=== PATIENT | female | born 1955 | race Caucasian/White ===

== ENCOUNTER → 2019-08-16 | Outpatient (CLI) | payer MEDICARE, OTHER ==
[~2019-08-16] MED LIST: LIPITOR 10MG10 MG PO; NORVASC 5MG5 MG/TAB PO; PRIL40 PO
== END ==
LOC: COL.LAB 08:00
DX: Z20.828 Contact with and (suspected) exposure to other viral communicable diseases (principal)

== ENCOUNTER 2019-08-21 09:31 | Day surgery (SDC) | payer MEDICARE, OTHER ==
[~2019-08-21] VITALS: Ht 154.9 cm; Wt 78.9 kg
[2019-08-21 09:54] VITALS: BP 139/83; PULSE 67; TEMP 98.7
[2019-08-21] MEDS ORDERED: LIPITOR 10MG10 MG PO (09:54)
[2019-08-21] MEDS ORDERED: NORVASC 5MG5 MG/TAB PO (09:54)
[2019-08-21] MEDS ORDERED: PRIL40 PO (09:54)
[2019-08-21 11:17] VITALS: BP 123/54; PULSE 70; TEMP 97
[2019-08-21 11:30] VITALS: BP 121/83; PULSE 69
[2019-08-21 11:45] VITALS: BP 129/70; PULSE 60
[2019-08-21 11:53] VITALS: BP 105/70; PULSE 69
--- NOTE | 2019-08-21 12:06 | NUR ---
Pts VS remain stable. IV removed and pressure dressing applied. Tolerated juice and crackers. Discharge teaching completed, verbalized understanding. After pt dressed, taken via wheelchair to private vehicle for dc home with driving.
== END 2019-08-21 12:06 | disposition home or self-care (01) ==
LOC: SDCO 09:31
DX: K21.9 Gastro-esophageal reflux disease without esophagitis (principal); K31.7 Polyp of stomach and duodenum; K22.2 Esophageal obstruction; K22.4 Dyskinesia of esophagus; K44.9 Diaphragmatic hernia without obstruction or gangrene; Z88.2 Allergy status to sulfonamides; Z79.51 Long term (current) use of inhaled steroids; E78.5 Hyperlipidemia, unspecified; Z90.49 Acquired absence of other specified parts of digestive tract
CPT/HCPCS: C1726; J2250; J2405; J3010; J7030

== ENCOUNTER 2024-01-10 11:02 | Outpatient (RCR) | payer MEDICARE | END 2024-01-29 | disposition home or self-care (01) | LOC: WSST | DX: R49.0 Dysphonia (principal); R13.12 Dysphagia, oropharyngeal phase ==